=== PATIENT | male | born 1995 | race Caucasian/White ===

== ENCOUNTER 2018-05-27 20:07 | Emergency (ER) | payer OTHER ==
[~2018-05-27] VITALS: Ht 167.6 cm; Wt 79.8 kg
[2018-05-27 20:18] VITALS: BP 116/91; Ht 167.6 cm; Wt 79.8 kg
== END 2018-05-27 22:15 | disposition home or self-care (01) ==
LOC: ED 20:07
DX: S61.411A Laceration without foreign body of right hand, initial encounter (principal); W26.8XXA Contact with other sharp object(s), not elsewhere classified, initial encounter; Y93.89 Activity, other specified; Y92.89 Other specified places as the place of occurrence of the external cause; Y99.8 Other external cause status
CPT/HCPCS: 90715; J2001

== ENCOUNTER 2018-05-29 16:41 | Emergency (ER) | payer OTHER ==
[~2018-05-29] VITALS: Ht 170.2 cm; Wt 78.5 kg
[2018-05-29 16:52] VITALS: Ht 170.2 cm; Wt 78.5 kg
[2018-05-29 17:19] VITALS: BP 143/83
== END 2018-05-29 17:19 | disposition home or self-care (01) ==
LOC: ED 16:41
DX: S61.412D Laceration without foreign body of left hand, subsequent encounter (principal); X58.XXXD Exposure to other specified factors, subsequent encounter